=== PATIENT | male | born 1950 | race African-American/Black ===

== ENCOUNTER 2021-09-11 07:09 | Outpatient (REF) | payer OTHER, MEDICARE, SELFPAY | END 2021-09-11 07:10 | disposition home or self-care (01) | LOC: HO.MMNH1L 07:09 | PROVIDERS: Visit Provider Family Medicine | DX: Z13.89 Encounter for screening for other disorder (principal) ==

== ENCOUNTER 2021-10-01 06:26 | Outpatient (REF) | payer SELFPAY | END 2021-10-01 06:27 | disposition home or self-care (01) | LOC: HO.MMNH1L 06:26 | PROVIDERS: Visit Provider Family Medicine | DX: Z13.89 Encounter for screening for other disorder (principal) ==